=== PATIENT | female | born 1960 | race Caucasian/White ===

== ENCOUNTER 2022-11-17 00:20 | Emergency (ER) | payer BC ==
[2022-11-17 00:47] LABS: Hemoglobin 14.1 g/dL (12.0-15.5); MDiff Complete? YES; Mean Corpuscular HGB CONC 33.6 g/dL (32.0-36.0); Mean Corpuscular Hemoglobin 30.3 pg (27.0-33.0); Mean Corpuscular Volume 90.3 fl (81.6-98.3); Mean Platelet Volume 10.1 fl (7.4-10.4); Platelet Count 419 10x3/uL (150-450); Red Blood Cell (RBC) Count 4.65 10x6/uL (3.90-5.03); White Blood Cell (WBC) Count 11.3 10x3/uL (3.5-10.5)
[2022-11-17 01:01] LABS: ALT (SGPT) 21 U/L (8-55); AST (SGOT) 38 U/L (5-34); Albumin 3.3 g/dL (3.4-4.8); Alkaline Phosphatase 43 U/L (40-110); Anion Gap 24 mmol/L (10-20); BUN (Urea Nitrogen) 25 mg/dL (9.8-20.1); Bilirubin, Total 0.5 mg/dL (0.2-1.2); Calc. Creatinine Clearance 0 mL/min (70-130); Calcium 8.1 mg/dL (7.8-10.44); Carbon Dioxide 13 mmol/L (23-31); Chloride 105 mmol/L (98-107); Estimated GFR 23; Globulin 2.8 g/dL (2.4-3.5); Glucose 111 mg/dL (80-115); Lipase 29 U/L (8-78); Magnesium 1.3 mg/dL (1.6-2.6); Potassium 3.3 mmol/L (3.5-5.1); Protein, Total 6.1 g/dL (5.8-8.1); Sodium 139 mmol/L (136-145)
[2022-11-17] MEDS ORDERED: Acetaminophen 500 MG TAB ONE (01:06)
[2022-11-17] MEDS ORDERED: NOREPINEPHRINE 8 MG/250 ML-D5W 250 ML ONE ×3 (01:09→05:13)
[2022-11-17] MEDS ORDERED: metroNIDAZOLE 500 MG/100 ML BAG ONE (01:17)
[2022-11-17] MEDS ORDERED: Vancomycin 1 GM VIAL ONE (01:17)
[2022-11-17] MEDS ORDERED: Levofloxacin 500 mg/D5W 100 ml Premix Bag ONE (01:17)
[2022-11-17] MEDS ORDERED: Ondansetron PF 4 MG/2 ML Vial ONE (02:10)
[2022-11-17 02:25] LABS: Band 12 % (5-11); Eosinophils 1 % (0-10); Lymphocytes 8 % (21-51); Monocytes 5 % (0-10); Neutrophil 72 % (42-75); Reactive Lymphocytes 2 % (0-10)
[2022-11-17 02:26] LABS: RBC Morph Comment Within Normal Limits
[2022-11-17 02:27] LABS: Platelet Adequacy Comment Appears Adequate
[2022-11-17] MEDS ORDERED: EPINEPHrine 4 MG in Dextrose 5% in Water 250 ML IVPB SCH (03:00)
[2022-11-17] MEDS ORDERED: EPINEPHrine 1 MG/ML AMP ONE (03:01)
[2022-11-17] MEDS ORDERED: EPINEPHrine 1 MG/10 ML Abboject SYRINGE ONE (03:02)
[2022-11-17 04:14] LABS: Bilirubin 1+ (Negative); Blood, Urine 250 (Negative); Clarity Cloudy (Clear); Glucose, Urine (Dipstick) Normal (Negative); Ketone, Urine Negative (Negative); Leukocyte 500 (Negative); Nitrite Negative (Negative); Protein, Urine (Dipstick) 500 mg/dl (Neg-Trace); Specific Gravity, Urine 1.015 (1.005-1.030); Urobilinogen Normal mg/dL (Less than 2)
[2022-11-17 04:23] LABS: CAUTI Indications for Culture Fever or rigors; Squamous Epithelial 0-3 HPF (0-3); WBC/HPF 21-50 HPF (0-3)
[2022-11-17 04:24] LABS: Bacteria/HPF 1+ HPF (None Seen); Calcium Oxalate Crystals 1+ HPF (None Seen)
[2022-11-17 04:25] LABS: Urine Culture Reflex Yes Yes
[2022-11-17] MEDS ORDERED: Hydrocortisone Sod Succ/PF 250 mg/2 ml Vial SLOW IVP SCH (04:30)
[2022-11-17] MEDS ORDERED: Albumin 25% 100 ML ONE (04:50)
[2022-11-17] MEDS ORDERED: Vasopressin 20 UNITS in Sodium Chloride 0.9% 50 ML IV SCH (05:15)
[2022-11-17] MEDS ORDERED: Iopamidol 300 61% 100 ML VIAL FS ONE (10:09)
== END 2022-11-17 06:30 | disposition short-term general hospital (02) ==
LOC: CSHERS 00:20
DX: R65.21 Severe sepsis with septic shock (principal); N17.9 Acute kidney failure, unspecified; R19.7 Diarrhea, unspecified; R11.2 Nausea with vomiting, unspecified; I10 Essential (primary) hypertension
CPT/HCPCS: 36556; 71045; 74177; 76705; 80053; 81001; 83605; 83690; 83735; 84484; 85025; 86850; 86900; 86901; 87040; 87086; 93005; 96374; 96375; J0171; J1720; J1956; J2405; J3370; P9047; Q9967

== ENCOUNTER 2022-12-08 04:32 | Day surgery (SDC) | payer BC ==
[2022-12-08 05:31] LABS: #Basophils 0.2 10x3/uL (0.0-0.2); #Eosinphils 0.3 10x3/uL (0.0-0.5); #Monocytes 0.9 10x3/uL (0.0-1.1); #Neutrophils 5.2 10x3/uL (1.5-8.4); %Basophils 2.6 % (0.0-2.0); %Eosinophils 2.8 % (0.0-6.0); %Lymphocytes 28.5 % (18.0-47.0); %Monocytes 9.5 % (0.0-10.0); %Neutrophils 56.2 % (40.0-75.0); Hemoglobin 10.5 g/dL (12.0-15.5); Mean Corpuscular HGB CONC 33.3 g/dL (32.0-36.0); Mean Corpuscular Hemoglobin 29.2 pg (27.0-33.0); Mean Corpuscular Volume 87.7 fl (81.6-98.3); Mean Platelet Volume 9.9 fl (7.4-10.4); Platelet Count 605 10x3/uL (150-450); RBC Distribution Width 13.3 % (11.5-14.5); Red Blood Cell (RBC) Count 3.59 10x6/uL (3.90-5.03); White Blood Cell (WBC) Count 9.3 10x3/uL (3.5-10.5)
[2022-12-08 05:44] LABS: ALT (SGPT) 10 U/L (8-55); AST (SGOT) 16 U/L (5-34); Albumin 3.3 g/dL (3.4-4.8); Alkaline Phosphatase 52 U/L (40-110); Anion Gap 13 mmol/L (10-20); BUN (Urea Nitrogen) 12 mg/dL (9.8-20.1); Bilirubin, Total 0.3 mg/dL (0.2-1.2); Calc. Creatinine Clearance 0 mL/min (70-130); Calcium 9.1 mg/dL (7.8-10.44); Carbon Dioxide 22 mmol/L (23-31); Chloride 104 mmol/L (98-107); Estimated GFR 85; Globulin 4.2 g/dL (2.4-3.5); Glucose 122 mg/dL (80-115); Lipase 102 U/L (8-78); Protein, Total 7.5 g/dL (5.8-8.1); Sodium 135 mmol/L (136-145)
[2022-12-08] MEDS ORDERED: Ondansetron PF 4 MG/2 ML Vial ONE ×3 (05:53→16:46)
[2022-12-08] MEDS ORDERED: Promethazine HCl 12.5 MG in Sodium Chloride 0.9% 50 ML IVPB SCH (07:00)
[2022-12-08] MEDS ORDERED: Morphine 4 MG/ML VIAL ONE (07:52)
[2022-12-08] MEDS ORDERED: diphenhydrAMINE 50 MG/ML VIAL ONE (08:22)
[2022-12-08] MEDS ORDERED: Bupivacaine HCl 0.5%/Epinephrine 1:200,000/PF 30 ml Vial ONE (11:53)
[2022-12-08] MEDS ORDERED: Glucagon 1 MG/ML KIT ONE (11:53)
[2022-12-08] MEDS ORDERED: Iopamidol 0 ML FS ONE (11:54)
[2022-12-08 12:22] LABS: Bilirubin Neg (Negative); Blood, Urine Negative (Negative); Clarity Clear (Clear); Glucose, Urine (Dipstick) Normal (Negative); Ketone, Urine 5 mg/dL (Negative); Leukocyte Negative (Negative); Nitrite Negative (Negative); Protein, Urine (Dipstick) 30 mg/dl (Neg-Trace); Specific Gravity, Urine 1.015 (1.005-1.030); Urobilinogen Normal mg/dL (Less than 2)
[2022-12-08 12:30] LABS: Bacteria/HPF None Seen HPF (None Seen); CAUTI Indications for Culture Pelvic or flank pain; RBC/HPF 0-3 HPF (0-3); Squamous Epithelial None Seen HPF (0-3); WBC/HPF None Seen HPF (0-3)
[2022-12-08 12:31] LABS: Urine Culture Reflex No No
[2022-12-08] MEDS ORDERED: PROPOFOL 20 ML ONE (12:53)
[2022-12-08] MEDS ORDERED: fentaNYL 50 mcg/mL 1 mL Vial ONE (12:53)
[2022-12-08] MEDS ORDERED: Lidocaine 1% PF 5 ML VIAL ONE (12:54)
[2022-12-08] MEDS ORDERED: SUGAMMADEX SODIUM 200 MG/2 ML VIAL ONE (13:02)
[2022-12-08] MEDS ORDERED: Iopamidol 300 61% 100 ML VIAL FS ONE (13:26)
[2022-12-08] MEDS ORDERED: CEFAZOLIN 1 GM VIAL ONE (13:26)
[2022-12-08] MEDS ORDERED: ePHEDrine Sulfate 50 MG/10 ML VIAL ONE (13:31)
[2022-12-08] MEDS ORDERED: Dexamethasone 20 MG/5 ML VIAL ONE ×2 (13:44→16:46)
[2022-12-08] MEDS ORDERED: Glycopyrrolate 0.2 MG/ML 5 ML SYRINGE ONE (14:13)
[2022-12-08] MEDS ORDERED: Ketorolac Tromethamine 30 MG/ML VIAL ONE (14:14)
[2022-12-08] MEDS ORDERED: Fentanyl 250 MCG/5 ML VIAL ONE (16:18)
[2022-12-08] MEDS ORDERED: Dexamethasone 4 mg/ml Vial ONE (16:46)
== END 2022-12-08 16:02 | disposition home or self-care (01) ==
LOC: CSHERS 04:32 → CSHSDC 12:51
PROVIDERS: ATTEND Surgery
PROC: 0FT44ZZ Resection of Gallbladder, Percutaneous Endoscopic Approach (ICD-10-PCS; principal; 2022-12-08)
DX: K80.12 Calculus of gallbladder with acute and chronic cholecystitis without obstruction (principal); I10 Essential (primary) hypertension; Z79.899 Other long term (current) drug therapy; Z80.0 Family history of malignant neoplasm of digestive organs
CPT/HCPCS: 74177; 76705; 80053; 81001; 83690; 85025; 88304; 96361; 96365; 96375; C1889; J0690; J1100; J1200; J1611; J1885; J2270; J2405; J2550; J2704; J3010; Q9966; Q9967